=== PATIENT | female | born 1955 | race Caucasian/White ===

== ENCOUNTER 2023-09-13 14:08 | Outpatient (CLI) | payer MEDICARE, SELFPAY ==
[2023-09-13 14:48] LABS: Alanine Aminotransferase 20 U/L (6-35); Aspartate Amino Transferase 44 U/L (14-36)
== END 2023-09-13 14:09 | disposition home or self-care (01) ==
LOC: ANHLAB 14:10
PROVIDERS: PCP Family Medicine; Visit Provider Podiatrist Foot & Ankle Surgery
DX: B35.1 Tinea unguium (principal)
CPT/HCPCS: 36415; 84450; 84460

== ENCOUNTER 2023-12-13 14:47 | Outpatient (CLI) | payer MEDICARE, SELFPAY ==
[2023-12-13 15:32] LABS: Alanine Aminotransferase 22 U/L (6-35); Aspartate Amino Transferase 41 U/L (14-36)
== END 2023-12-13 14:48 | disposition home or self-care (01) ==
LOC: ANHLAB 14:49
PROVIDERS: PCP Family Medicine; Visit Provider Podiatrist Foot & Ankle Surgery
DX: B35.1 Tinea unguium (principal)
CPT/HCPCS: 36415; 84450; 84460